=== PATIENT | female | born 1970 | race Caucasian/White ===

== ENCOUNTER → 2020-09-28 14:16 | Outpatient (CLI) | payer OTHER, SELFPAY ==
[2020-09-28 15:50] LABS: COVID19 -Nasal RAPID Negative (Negative)
== END ==
PROVIDERS: Visit Provider Physician Assistant
DX: Z20.822 Contact with and (suspected) exposure to COVID-19 (principal)
CPT/HCPCS: 87635

== ENCOUNTER 2020-09-30 12:37 | Day surgery (SDC) | payer OTHER, SELFPAY ==
[2020-09-30] VITALS (8 sets, daily range): BP systolic 105–142; BP diastolic 66–87; PULSE 73–87; RESP 10–14; TEMP 36.3–36.9; O2SAT 98–99; BMI 34.9
--- NOTE | 2020-09-30 | PATH_ITS ---
[facility] Accession Number: [id number] . 01 Material submitted: . PART A: cecum - CECAL POLYP PART B: colon - ASCENDING COLON POLYP PART C: colon - RANDOM COLON BIOPSIES . 01 Clinical history: . C: RULE OUT MICROSCOPIC COLITIS . 02 Diagnosis: A. Cecal Polyp, Biopsy: Colonic mucosa with no diagnostic abnormality, consistent with polypoid redundancy. Negative for serrated lesion, dysplasia or malignancy. . B. Ascending Colon Polyp, Biopsy: Tubular adenoma. . C. Random Colon, Biopsies: Colonic mucosa with no diagnostic abnormality. Negative for active, chronic, and microscopic colitis. Negative for dysplasia and malignancy. . . MRV 10/05/2020 1500 Local . 02 Electronically signed: . Rajeev Fisher MD, PhD, Pathologist NPI- [id number] . 01 Gross description: . Part A: CECAL POLYP: Received in formalin are multiple fragment(s) of herrera, soft tissue measuring 0.8 x 0.6 x 0.3 cm in aggregate submitted entirely in 1 cassette(s) Part B: ASCENDING COLON POLYP: Received in formalin are multiple fragment(s) of herrera, soft tissue measuring 1.7 x 0.8 x 0.3 cm in aggregate submitted entirely in 1 cassette(s) Part C: RANDOM COLON BIOPSIES: Received in formalin are 7 fragment(s) of herrera, soft tissue measuring 0.8 x 0.3 x 0.1 cm to 0.3 x 0.2 x 0.1 cm submitted entirely in 1 cassette(s) /QBJ 10/02/2020 0823 Local . 02 Pathologist provided ICD-10: R19.4, D12.2, K63.5 . 02 CPT . 282545, 854216, 043617 Performed at: 01 [facility] [address] [place] [address], [place], [place] [id number] MD Chuck Navas MD Phone: [phone] Performed at: [facility] [place] [address] [place], [place] [id number] MD Harika Rodgers MD Phone: [phone]
[2020-09-30] MEDS: LACTATED RINGERS 1,000 ML 200 ML IV (13:04)
--- NOTE | 2020-09-30 14:31 | PM.HP.1 ---
History of Present Illness History of Present Illness Chief complaint: [facility] *$63 copay Patient History Medical History (Updated 09/30/20 @ 13:24 by Maryann Mendes, RN) Depression Epilepsy Water retention Surgical History (Updated 09/30/20 @ 13:06 by Maryann Mendes, RN) History of breast augmentation History of open reduction and internal fixation (ORIF) procedure S/P endometrial ablation Family & Social History Social History: household members spouse,children Tobacco & Substance use: Smoking Status Never smoker alcohol intake current alcohol intake frequency holiday/special occasion Substance Use Type does not use Meds Home Medications and Allergies Home Medications Medication Instructions Recorded Confirmed Type BUDESONIDE NASAL SPRAY (RHINOCORT 1 spray INTRANASAL QDAY #0 03/23/12 09/30/20 History AQ 32 MCG) escitalopram oxalate [Lexapro] 10 mg PO QDAY #0 03/23/12 09/30/20 History hydrochlorothiazide 12.5 mg PO QDAY #0 03/23/12 09/30/20 History lorazepam 1 mg PO BID #0 03/23/12 09/30/20 History phentermine 15 mg PO DAILY #0 03/23/12 09/30/20 History potassium chloride 10 meq PO QPM 09/30/20 09/30/20 History potassium chloride 20 meq PO QPM 09/30/20 09/30/20 History Review of Systems Review of Systems ROS: Yes All systems reviewed with the patient and are negative except as otherwise documented Exam Vital Signs (past 8 hours): - 09/30/20 13:12 Temperature 97.3 F L Pulse Rate 87 Respiratory Rate 14 Blood Pressure 142/87 H Pulse Oximetry 98 Oxygen Delivery Method Room Air Narrative Exam Narrative: Awake alert and oriented x3, pupils equal round reactive to light, oropharynx clear, heart regular rate and rhythm, lungs clear to auscultation bilaterally, abdomen nontender and nondistended, extremities without edema, no gross neurologic deficits noted Assessment & Plan Assessment & Plan narrative: Acute Diarrhea for colonoscopy today COVID-19 COVID-19 status: Negative Quality MIPS - Admit Advanced Care Plan / Current Medications Measures: #47 ? Advanced Care Plan Clinician documentation instruction: document at admission. [] I confirmed that the patient's Advance Care Plan is present, code status is documented, or surrogate decision maker is listed in the patient?s medical record. [SATISFIES MIPS PERFORMANCE] If Yes, Stop Here [] The patient?s Advance Care plan is not present because: (select) [MIPS PERFORMANCE EXCEPTION/EXCLUSION] [] I confirmed today that the patient does not wish or was not able to name a surrogate decision maker or provide an Advance Care Plan. [] Hospice care is currently being provided or has been provided this calendar year [] I did NOT confirm today the presence of an Advance Care Plan or surrogate decision maker documented within the patient's medical record. [DOES NOT SATISFY MIPS PERFORMANCE] #130 - Documentation of Current Medications in the Medical Record Clinician documentation instruction: use macro the first time you see a patient. [] I have utilized all available immediate resources to obtain, update, or review the patient?s current medications. [SATISFIES MIPS PERFORMANCE] If Yes, Stop Here [] The patient is not eligible for medication reconciliation; the patient is in an emergent medical situation where delaying treatment would jeopardize the patient?s health. [MIPS PERFORMANCE EXCEPTION/EXCLUSION] [] I did NOT confirm, update or review the patient's current list of medications today. [DOES NOT SATISFY MIPS PERFORMANCE] MIPS - CL Central Venous Catheter Placement Measure: #76 ? Prevention of Central Venous Catheter (CVC) ? Related Bloodstream Infection Clinician documentation instruction: use macro every time you place a central line. [] All elements of Maximal Sterile Barrier Technique, including hand hygiene, skin prep, and sterile ultrasound technique (if used) were followed. [SATISFIES MIPS PERFORMANCE] If Yes, Stop Here [] If ?No?, the medical reason all elements were NOT used for medical reason [] (ex. emergent condition). [] Maximal Sterile Barrier Technique was not followed, no reason provided [DOES NOT SATISFY MIPS PERFORMANCE] MIPS - DC Heart Failure Measures: #5 - Heart Failure (HF): Angiotensin-Converting Enzyme (NOA) Inhibitor or Angiotensin Receptor Davidson (ARB) Therapy for Left Ventricular Systolic Dysfunction (LVSD) and #8 - Heart Failure (HF): Beta-Davidson Therapy for Left Ventricular Systolic Dysfunction (LVSD) Clinician documentation instruction: use macro at every CHF discharge. [] The patient has current or prior documentation of left ventricular ejection fraction (LVEF) less than 40%, or moderate or severely depressed left ventricular systolic function. Answer both: [SATISFIES MIPS PERFORMANCE] [] The patient was prescribed or already taking an Angiotensin-Converting Enzyme (NOA) Inhibitor, or Angiotensin Receptor Davidson (ARB). [] The patient was prescribed or already taking a beta-davidson. If Yes to Both, Stop Here [] Patient not prescribed/taking: [MIPS PERFORMANCE EXCEPTION/EXCLUSION] [] NOA or ARB for medical/patient/system reason(s) including [] (ex. allergy, intolerance, contraindication) [] Beta-davidson for medical/patient/system reason(s) including [] (ex. allergy, intolerance, contraindication) [] Patient not prescribed/taking: [DOES NOT SATISFY MIPS PERFORMANCE] [] NOA or ARB, no reason given [] Beta-davidson, no reason given
--- NOTE | 2020-09-30 14:50 | P.OP.ENDO_ITS ---
Operative Date/Time/Diagnoses Date of procedure: 09/30/20 Procedure & Clinicians Study performed: Colonoscopy with forceps and snare polypectomy Moderate conscious sedation was administered by the endoscopy nurse and supervised by the endoscopist. The following parameters were monitored: Oxygen saturation, heart rate, blood pressure, and response to care. 7 mg of midazolam and 150 mcg of fentanyl given. Indications: Colon cancer screening. No prior colonoscopy. Chronic diarrhea alternating with constipation. Procedure Notes Procedure in detail: Prior to the procedure, history and physical was performed, and patient medications and allergies were reviewed. Preprocedure nursing history and assessment was reviewed. Patient identification and proposed pr ocedure were verified by the physician and nurse in the procedure room. The physical status of the patient was reassessed after the procedure. After informed consent was obtained including risks, benefits, and alternatives, the scope was passed under direct vision. Throughout the procedure, the patient's blood pressure, pulse, and oxygen saturations were monitored continuously. The colonoscope was introduced through the anus and advanced to the cecum as identified by the appendiceal orifice and ileocecal valve. The patient tolerated the procedure well. Bowel prep was deemed inadequate to detect polyps greater than 5 mm. JAROCHO and perianal examinations were unremarkable. Retroflexion in the rectum was unremarkable. There was liquid and semi-solid stool throughout the entire colon impairing visualization. This could not be completely lavaged. 5 mm sessile polyp near the appendiceal orifice in the cecum and a 4 mm sessile polyp in the ascending colon were removed with cold snare and retrieved. The terminal ileum was normal appearing. Random colon biopsies taken throughout the entire colon to rule out microscopic colitis. Impression: 4 mm and 5 mm polyp removed from the Ascending colon and cecum Normal appearing terminal ileum Biopsies taken throughout the entire colon Stool throughout the entire colon impairing visualization Sedation minutes: 18 Complications: other (EBL minimal. No complications) Post-procedure Plan for aftercare: Follow-up pathology results Repeat colonoscopy within the next 3 months with an extended bowel prep for colon cancer screening purposes Resume home medications Resume previous diet Follow-up with Dr Viera as previously scheduled Patient has a contact number available for emergencies. The signs and symptoms of potential delayed complications were discussed with the patient. Return to normal activities tomorrow. Written discharge instructions were provided to the patient. Discharge home with escort
[2020-09-30] MEDS: fentaNYL 250 MCG/5 ML INJ IV (14:53)
[2020-09-30] MEDS: MIDAZOLAM 5 MG/5 ML VIAL IV (14:54)
== END 2020-09-30 15:35 | disposition home or self-care (01) ==
PROVIDERS: Referring Provider Internal Medicine; Visit Provider Internal Medicine
PROC: 0DJD8ZZ Inspection of Lower Intestinal Tract, Via Natural or Artificial Opening Endoscopic (ICD-10-PCS; CPT 45378; principal; 2020-09-30 14:00)
DX: Z12.11 Encounter for screening for malignant neoplasm of colon (principal); G40.909 Epilepsy, unspecified, not intractable, without status epilepticus; F32.9 Major depressive disorder, single episode, unspecified; Z53.09 Procedure and treatment not carried out because of other contraindication; D12.2 Benign neoplasm of ascending colon
CPT/HCPCS: 45380; J2250; J3010

== ENCOUNTER → 2021-11-30 14:10 | Outpatient (CLI) | payer OTHER, SELFPAY ==
[2021-11-30 15:08] LABS: COVID19 -Nasal RAPID Negative (Negative)
== END ==
PROVIDERS: Visit Provider Surgery
DX: Z20.822 Contact with and (suspected) exposure to COVID-19 (principal); Z01.812 Encounter for preprocedural laboratory examination
CPT/HCPCS: 87635; C9803

== ENCOUNTER 2021-12-01 07:22 | Day surgery (SDC) | payer OTHER, SELFPAY ==
--- NOTE | 2021-12-01 | PATH_ITS ---
[facility] Accession Number: [id number] . 01 Material submitted: . sigmoid colon - SIGMOID COLON POLYP . 01 Diagnosis: Sigmoid Colon, Polyp, Biopsy: Hyperplastic polyp. MRV 12/03/2021 1114 Local . 01 Electronically signed: . Harika Rodgers MD, Pathologist NPI- [id number] . 01 Gross description: . SIGMOID COLON POLYP: Received in formalin is 1 fragment(s) of herrera, soft tissue measuring 0.9 x 0.3 x 0.1 cm submitted entirely in 1 cassette(s) /CPE 12/02/2021 0851 Local . 01 Pathologist provided ICD-10: K63.5 . 01 CPT . 793791 Specimen Comment: A courtesy copy of this report has been sent to [phone] Performed at: 01 [facility] [address] [place] [id number] MD Chuck Navas MD Phone: [phone]
[2021-12-01 07:50] VITALS: BP 132/81; PULSE 71; RESP 16; TEMP 36.6; O2SAT 99; BMI 33.2
[2021-12-01] MEDS: SODIUM CHLORIDE 0.9% 1,000 ML 70 ML IV (08:08)
--- NOTE | 2021-12-01 08:16 | P.HP_ITS ---
History of Present Illness History of Present Illness Chief complaint: [facility] Copay $67 Narrative: Patient is a pleasant 51-year-old female who presented for colonoscopy. She had a colonoscopy 09/30/2020 where she was noted to have a tubular adenoma and a poor preparation. A three-month recheck was recommended. She has had a change in her bowel habits. She has had more constipation. On her last colonoscopy random colon biopsies were negative. Patient History Medical History (Updated 09/30/20 @ 13:24 by Maryann Mendes RN) Depression Epilepsy Water retention Surgical History (Updated 09/30/20 @ 13:06 by Maryann Mendes RN) History of breast augmentation History of open reduction and internal fixation (ORIF) procedure S/P endometrial ablation Family & Social History Social History: household members spouse,children Tobacco & Substance use: Smoking Status Never smoker alcohol intake current alcohol intake frequency holiday/special occasion Substance Use Type does not use Meds Home Medications and Allergies Home Medications Medication Instructions Recorded Confirmed Type BUDESONIDE NASAL SPRAY (RHINOCORT 1 spray INTRANASAL QDAY #0 03/23/12 12/01/21 History AQ 32 MCG) escitalopram oxalate 10 mg tablet 10 mg PO QDAY #0 03/23/12 12/01/21 History (Lexapro) hydrochlorothiazide 12.5 mg capsule 12.5 mg PO QDAY #0 03/23/12 12/01/21 History potassium chloride 20 mEq 20 meq PO QPM 09/30/20 12/01/21 History tablet,extended release(part/cryst) Allergies Allergy/AdvReac Type Severity Reaction Status Date / Time No Known Drug Allergies Allergy Verified 12/01/21 07:41 Review of Systems Review of Systems ROS: Yes All systems reviewed with the patient and are negative except as otherwise documented Exam Vital Signs (past 8 hours): - 12/01/21 07:50 Temperature 97.9 F Pulse Rate 71 Respiratory Rate 16 Blood Pressure 132/81 Pulse Oximetry 99 Oxygen Delivery Method Room Air Const General: cooperative, healthy appearing, comfortable, well developed, well groomed and No acute distress HENVT Head: normocephalic and atraumatic Resp Effort & Inspection: normal respiratory effort and able to speak in complete sentences Auscultation: clear to auscultation bilaterally Cardio Rate: regular rate Rhythm: regular rhythm GI Palpation: soft Objective ECG Impression: No clubbing or cyanosis lower extremities bilaterally Assessment & Plan Assessment & Plan narrative: 1. Colonoscopy today, further recommendations to follow Time Spent With Patient Critical Care time: I spent a total of [] minutes of critical care time on this patient's care today; this time is exclusive of procedural time.
--- NOTE | 2021-12-01 08:56 | P.OP.COLON_ITS ---
Operative Date/Time/Diagnoses Date of procedure: 12/01/21 Time of procedure: 08:30 Procedure Notes Procedure in detail: Surgeon: Emilee Chanel DO Procedure: Colonoscopy with polypectomy Preoperative diagnosis: 1. Personal history colon polyps, non advanced tubular adenoma 2. History of poor prep 09/30/2020 Postoperative diagnosis: 1. Sigmoid polyp 5 mm removed with cold snare 2. Poor preparation Medications: Monitored anesthesia care, see Anesthesia note Preanesthesia Assessment An H and P was performed/updated and the Px?s ASA class is 2. The procedure was discussed in detail with the patient. The potential risks and complications inc luding infection, bleeding, missed lesions, perforation, need for surgery in case of perforation, prolonged hospital stay, and were explained. A brief question and answer period was allotted and once all questions were answered, informed consent was obtained. The patient was brought back to the procedure room and placed on standard monitoring. The patient?s vital signs were monitored continuously throughout the entire procedure. Prior to starting, a timeout was performed to confirm the patient?s identity, allergies, medications, and procedure. Procedure in detail The patient was placed in left lateral decubitus position and once adequate sedation was obtained a JAROCHO was performed. The digital rectal examination did not reveal any palpable lesions. The tip of the colonoscope was placed in the anal canal and advanced without difficulty all the way to the cecum which was identified by the appendiceal orifice and the ileocecal valve. Unfortunately there was a significant amount of solid and semisolid stool in the right colon and liquid stool throughout the left colon. This made visualization incomplete. A 5 mm polyp was noted in the sigmoid with cold snare. This was retrieved. The patient tolerated the procedure well and will be brought back to the recovery area to be discharged once criteria are met. The prep was judged to be poor. The withdrawal time was 10min. Complications There were no complications and estimated blood loss was minimal. Recommendations: Resume previous diet Continue outPx medications Follow up pathology results Repeat colonoscopy to be scheduled due to poor preparation An emergency contact number was given to the patient for any complications related to the procedure
[2021-12-01 08:58] VITALS: BP 123/65; PULSE 69; RESP 16; TEMP 36.1; O2SAT 100
[2021-12-01 09:04] VITALS: BP 130/64; PULSE 68; RESP 16; O2SAT 100
[2021-12-01 09:08] VITALS: BP 119/59; PULSE 67; RESP 16; O2SAT 100
[2021-12-01 09:15] VITALS: BP 133/63; PULSE 74; RESP 18; O2SAT 97
[2021-12-01 09:21] VITALS: BP 130/72; PULSE 66; RESP 16; O2SAT 98
== END 2021-12-01 09:36 | disposition home or self-care (01) ==
PROVIDERS: Student in an Organized Health Care Education/Training Program; Referring Provider Internal Medicine Gastroenterology; Visit Provider Internal Medicine Gastroenterology
PROC: 0DJD8ZZ Inspection of Lower Intestinal Tract, Via Natural or Artificial Opening Endoscopic (ICD-10-PCS; CPT 45378; principal; 2021-12-01 08:30)
DX: Z12.11 Encounter for screening for malignant neoplasm of colon (principal); Z86.010 Personal history of colon polyps; K63.5 Polyp of colon
CPT/HCPCS: 45385; 81025; J2704